=== PATIENT | female | born 1955 | race Caucasian/White ===

== ENCOUNTER 2019-10-17 15:00 | Emergency (ER) | payer OTHER ==
[2019-10-17 15:19] VITALS: BP 147/68; PULSE 84; TEMP 98.1; BMI 47.5
[2019-10-17] MEDS ORDERED: KETOROLAC TROMETHAMINE 30 MG/1 ML VIAL IM ONE (15:20)
[2019-10-17] MEDS ORDERED: KETOROLAC TROMETHAMINE 30 MG/1 ML VIAL ONE (15:55)
--- NOTE | 2019-10-17 16:24 | PDOC ---
Documentation entered by Ellie De Jesus SCRIBE, acting as scribe for Jacey Robles MD. Jacey Robles MD: This documentation has been prepared by the jassibNeal echevarria Lincy, SCRIBE, under my direction and personally reviewed by me in its entirety. I confirm that the documentation accurately reflects all work, treatment, procedures, and medical decision making performed by me. History of Present Illness - General Chief Complaint: Pain, Acute Stated Complaint: LEFT KNEE PAIN Time Seen by Provider: 10/17/19 15:03 History Source: Patient Exam Limitations: No Limitations - History of Present Illness Initial Comments: 10/17/19 16:25 The Patient is a 64-year-old female with no significant past medical history who presents to the emergency department with left knee pain. The Patient reports a chronic history of knee pain, which worsened acutely 2 days ago, with pain radiating down the back of the calf. The Patient ambulates with difficulty using crutches. Denies swelling, trauma hip, or ankle pain. The Patient reports she might have had a caba cyst in the past. Past History - Medical History Allergies/Adverse Reactions: Allergies Allergy/AdvReac Type Severity Reaction Status Date / Time latex Allergy Verified 04/11/15 13:18 pistachio nut Allergy Verified 04/11/15 13:18 Home Medications: Ambulatory Orders NK [No Known Home Medication] 04/14/15 - Surgical History Cholecystectomy: Yes - Psycho-Social/Smoking History Smoking History: Never smoked Review of Systems - Review of Systems Able to Perform ROS?: Yes Comments:: 10/17/19 16:26 GENERAL/CONSTITUTIONAL: No fever or chills. No weakness. HEAD, EYES, EARS, NOSE AND THROAT: No change in vision. No ear pain or discharge. No sore throat. CARDIOVASCULAR: No chest pain or shortness of breath. RESPIRATORY: No cough, wheezing, or hemoptysis. GASTROINTESTINAL: No nausea, vomiting, diarrhea or constipation. GENITOURINARY: No dysuria, frequency, or change in urination. MUSCULOSKELETAL: +left knee pain. No ankle or hip pain. No swelling. No other joint or muscle swelling or pain. No neck or back pain. SKIN: No rash NEUROLOGIC: No headache, vertigo, loss of consciousness, or change in strength/sensation. ENDOCRINE: No increased thirst. No abnormal weight change. HEMATOLOGIC/LYMPHATIC: No anemia, easy bleeding, or history of blood clots. ALLERGIC/IMMUNOLOGIC: No hives or skin allergy. *Physical Exam - Physical Exam 10/17/19 16:21 Awake alert no acute distress lungs are clear bilaterally heart is regular 30 murmurs rubs or gallops examination of the left lower extremity demonstrates mild tenderness the posterior left knee fossa. There is no laxity negative anterior posterior drawer negative Lockman's test no effusion appreciated ankle and hip are full range of motion nontender no edema. Medical Decision Making - Medical Decision Making 10/17/19 16:22 64-year-old female here today with a history of bilateral knee arthritis complaining of severe sudden onset 2 days left knee pain. Differential clues ruptured Caba's cyst DVT ligamentous tear internal knee derangement. Plan x- ray of the left knee and Doppler of left lower extremity Focused lower extremity DVT of the left leg was performed no proximal DVT full compression at all sites no visualized clot x-ray of the knee was obtained no acute fractures. Patient did have an area on her ultrasound of mild irregulari ty hypoechoic region possible ruptured Caba's cyst absent color flow with Doppler will discharge home Motrin for pain as needed follow-up with Dr. Goldsmith and [facility] Discharge - Discharge Information Problems reviewed: Yes Clinical Impression/Diagnosis: Knee pain Condition: Improved Disposition: HOME - Admission No - Follow up/Referral Referrals: Nasir Goldsmith DO [Staff Physician] - - Patient Discharge Instructions Patient Printed Discharge Instructions: Knee Sprain, Bakers Cyst Additional Instructions: Her ultrasound today is negative for any acute blood clot. However of persistent pain he should have repeat study within 7 days x-rays are negative for any acute fracture or bony irregularity. You may have a ligamentous injury in your left knee. There is a small area that looks concerning for possible ruptured Caba's cyst for this you can take ibuprofen 600 mg every 8 hours as needed for pain. Ice and elevate your leg to reduce swelling or you may apply heat packs whichever feels better you should follow-up with an orthopedist for persistent pain beyond 1 week see referral for Dr. Goldsmith or [facility] call to schedule - Post Discharge Activity
== END 2019-10-17 16:40 | disposition home or self-care (01) ==
LOC: FER 15:00
PROC: 3E023GC Introduction of Other Therapeutic Substance into Muscle, Percutaneous Approach (ICD-10-PCS; principal; 2019-10-17)
DX: M25.562 Pain in left knee (principal)
CPT/HCPCS: 73562-TC-LT-FY; 93971-LT; 99284-25

== ENCOUNTER 2020-09-24 04:55 | Day surgery (SDC) | payer OTHER ==
[2020-09-24 10:41] VITALS: BMI 43.0
[2020-09-24 11:49] VITALS: TEMP 97.3
[2020-09-24 13:02] VITALS: BP 145/73; PULSE 66
== END 2020-09-24 13:20 | disposition home or self-care (01) ==
LOC: JASU-ENDO 04:55
PROVIDERS: ATTEND Internal Medicine Gastroenterology
PROC: 0DBN8ZX Excision of Sigmoid Colon, Via Natural or Artificial Opening Endoscopic, Diagnostic (ICD-10-PCS; principal; 2020-09-24 11:00)
DX: Z12.11 Encounter for screening for malignant neoplasm of colon (principal); D12.5 Benign neoplasm of sigmoid colon; K59.89 Other specified functional intestinal disorders; Z83.71 Family history of colonic polyps
CPT/HCPCS: 88305-TC

== ENCOUNTER 2022-01-20 04:30 | Day surgery (SDC) | payer OTHER ==
[2022-01-18 08:54] VITALS: BMI 46.0
[2022-01-20 09:56] VITALS: TEMP 98.9
[2022-01-20 10:36] VITALS: BP 97/58; PULSE 64; RESP 14
== END 2022-01-20 10:37 | disposition home or self-care (01) ==
LOC: JASU-ENDO 04:30
PROVIDERS: ATTEND Internal Medicine Gastroenterology
PROC: 0DBL8ZX Excision of Transverse Colon, Via Natural or Artificial Opening Endoscopic, Diagnostic (ICD-10-PCS; principal; 2022-01-20 09:00)
DX: Z12.11 Encounter for screening for malignant neoplasm of colon (principal); D12.3 Benign neoplasm of transverse colon; K57.30 Diverticulosis of large intestine without perforation or abscess without bleeding; K64.8 Other hemorrhoids; Z86.010 Personal history of colon polyps
CPT/HCPCS: 88305-TC